=== PATIENT | female | born 1995 | race Caucasian/White ===

== ENCOUNTER 2022-01-08 09:04 | Emergency (ER) | payer BC, SELFPAY ==
[2022-01-08 09:28] VITALS: BP 117/80; PULSE 75; RESP 18; TEMP 37; O2SAT 98; BMI 34.1
[2022-01-08 09:40] LABS: Strep Scrn Group A (Rapid) Negative (Negative)
--- NOTE | 2022-01-08 09:48 | HMH.EDUTC ---
[facility] Disposition Clinical Impression: URI (upper respiratory infection) Qualifiers: URI type: unspecified URI Qualified Code(s): J06.9 - Acute upper respiratory infection, unspecified Disposition: Home, Self-Care Condition on Discharge: Good Instructions: Sore Throat Additional Instructions: *Monitor Temp, Over the counter Motrin or Tylenol as directed/as needed Tylenol every 4 hours and Motrin every 6 hours (as long as your family doctor has told you that you can take it) for fever or pain. and straight to ER if unable to lower temp less than 101.0 after medication given *Warm salt water gargles may help to soothe the throat *Throat Lozenges *Warm fluids like tea with honey may help to soothe the throat *Sleep elevated *Humidifier/Vaporizer Your throat swab was sent for culture. Those results are typically sent to your primary care. Be sure to follow up in 2-3 days with your family doctor/primary care physician if no improvement so they can review those result and treat if necessary. If you don?t have a primary care doctor, I recommend you get one but in the mean time, you will have to return to a walk in clinic Follow up IMMEDIATELY for new or worsening symptoms or no Noticeable improvement over the next 48-72 hours. 911 for difficulty breathing or swallowing Prescriptions: Azithromycin [Z-Hai 250mg Tab] 250 mg PO DIRECTED #6 tab Transmission Status: Pending to [id number] Referrals: Provider,Referral, [Primary Care Provider] - As needed Time of Disposition: 10:04 Medical Decision Making - Sagar Inquiry Pt receiving controlled substance: No Sagar was queried for this patient: No Vital Signs: 01/08/22 09:28 Temperature 98.6 F Temperature Source Oral Pulse Rate [Left] 75 Respiratory Rate 18 Blood Pressure [Right Arm] 117/80 Blood Pressure Mean [Right Arm] 92 02 Sat by Pulse Oximetry 98 - Lab Data Lab results reviewed: Yes: I reviewed the patient's lab results. Lab Results 01/08/22 09:28: Group A Strep Rapid Negative Orders (Tests/Meds): ORDERS Category Date Time Status Strep Screen Confirmation Stat Micro 01/08/22 09:[address] [facility] HPI - General Stated complaint: sore throat Time Seen by Provider: 01/08/22 09:48 Mode of Arrival: Ambulatory Source of Information: Patient Limitations: No Limitations Description of Symptoms (Recalled from Triage Doc. by RN): pt c/o congestion and a sore throat. pt states she has had 2 negative covid tests, however she was exposed about a wk ago. HEENT Symptoms (Recalled from RN notes): Yes Resp Symptoms (Recalled from RN notes): No Skin Symptoms (Recalled from RN notes): No MS Symptoms (Recalled from RN notes): No Functional Status (Recalled from RN notes): wnl - History of Present Illness Provider Complaint: Patient states that she has been having sinus congestion and sore throat States that last night she was looking at her throat and noticed a white patchy like area on the right lower part of her throat like she gets when she gets strep throat - Related Data Home Medications Medication Instructions Recorded Confirmed norgestimate 0.25 mg-ethinyl PO #84 tab 05/08/19 05/08/19 estradiol 35 mcg tablet Previous Rx's Medication Instructions Recorded cetirizine 5 mg-pseudoephedrine ER 1 tab PO Q12H PRN #30 tab 05/08/19 120 mg tablet,extended release,12hr fluticasone propionate 50 2 spray INTRANASAL DAILY #9.9 g 05/08/19 mcg/actuation nasal spray,suspension Azithromycin [Z-Hai 250mg Tab] 250 mg PO DIRECTED #6 tab 01/08/22 Allergies Allergy/AdvReac Type Severity Reaction Status Date / Time amoxicillin Allergy Verified 05/08/19 17:40 cephalexin Allergy Verified 05/08/19 17:40 - Worker's Comp Is this a Worker's Comp case?: No [facility] History - Hepatitis A Screen Attestation statement:: This patient has been screened for Hepatitis A risk factors. I have reviewed the patient'
[2022-01-08 10:09] VITALS: BP 117/80; PULSE 75; RESP 18; TEMP 37
[2022-01-08 10:16] LABS: Adenovirus,PCR Not Detected (NotDetected); Bordetella Pertussis Not Detected (NotDetected); Chlamydophila Pneumoniae, PCR Not Detected (NotDetected); Coronavirus 19, PCR Not Detected (NotDetected); Coronavirus 229E Not Detected (NotDetected); Coronavirus OC43 Not Detected (NotDetected); Coronovirus HKU1,PCR Not Detected (NotDetected); Human Metapneumovirus Not Detected (NotDetected); Influenza A, PCR Not Detected (NotDetected); Influenza AH1, 2009 Not Detected (NotDetected); Influenza AH1, PCR Not Detected (NotDetected); Influenza AH3,PCR Not Detected (NotDetected); Influenza B, PCR Not Detected (NotDetected); Mycoplasma Pneumoniae, PCR Not Detected (NotDetected); Parainfluenza 1, PCR Not Detected (NotDetected); Parainfluenza 2, PCR Not Detected (NotDetected); Parainfluenza 3, PCR Not Detected (NotDetected); Parainfluenza 4, PCR Not Detected (NotDetected); Respiratory Syncytial Virus Not Detected (NotDetected); Rhinovirus/Enterovirus Not Detected (NotDetected)
[2022-01-08 13:02] LABS: Coronavirus NL63 Detected (NotDetected)
== END 2022-01-08 10:14 | disposition home or self-care (01) ==
PROVIDERS: Emergency Provider Nurse Practitioner
DX: U07.1 COVID-19 (principal); J06.9 Acute upper respiratory infection, unspecified; Z79.51 Long term (current) use of inhaled steroids; Z88.0 Allergy status to penicillin; Z88.1 Allergy status to other antibiotic agents; Z88.3 Allergy status to other anti-infective agents; Z88.8 Allergy status to other drugs, medicaments and biological substances
CPT/HCPCS: 87430; 87581; 87632; 87798; 99213; C9803; G0463; U0003; U0005

== ENCOUNTER 2024-05-06 18:43 | Emergency (ER) | payer BC, SELFPAY ==
[2024-05-06 19:20] VITALS: BP 136/94; PULSE 74; RESP 20; TEMP 36.9; O2SAT 100; BMI 36.4
--- NOTE | 2024-05-06 19:43 | EXP.UTC ---
Discharge Plan Disposition Patient Disposition: Home, Self-Care Condition: Good Prescriptions Prescriptions: No Action sertraline 50 mg tablet 50 mg PO DAILY Patient Comments: TAKE 1 TABLET BY MOUTH ONCE DAILY Referrals Follow up/Referrals: Provider,Referral, [Primary Care Provider] - See instructions Activity Restrictions/Add. Instructions Additional Instructions/Restrictions: Follow-up with [facility] If worsens or no improvement return to be seen in the ER Monitor for fever For any issues return or be seen in the ER. Clinical Impressions Clinical Impression: Abdominal tenderness Instructions Patient Instructions: DI Umbilical Hernia-Child, Acute Abdominal Pain Print Language Print Language: French Discharge ED Provider: [place] ([facility] [place])Mary [facility] HPI General Stated complaint: Abd pain Mode of Arrival: Ambulatory Source of Information: Patient Limitations: No Limitations Time Seen by Provider: 05/06/24 19:30 Description of Symptoms (Recalled from Triage Doc. by RN): PATIENT C/O PAIN AND TENDERNESS TO RLQ THAT STARTED OVER THE LAST WEEK. SHE ALSO STATES SHE HAS A KNOT TO RIGHT SIDE OF UMBILICAL AREA. PATIENT REPORTS SHE HAD A 5 WEEKS AGO HEENT Symptoms (Recalled from RN notes): No Resp Symptoms (Recalled from RN notes): No Skin Symptoms (Recalled from RN notes): No MS Symptoms (Recalled from RN notes): No Functional Status (Recalled from RN notes): WNL History of Present Illness Provider Complaint: 29-year-old female presents for pain and tenderness in the right lower quadrant that started over a week ago. Patient states she is also has a golf ball size not area on the right side of her umbilicus. Patient states she had a 5 weeks ago and has had no complications denies fever denies redness denies tenderness of the C-sections scar. Patient states she called her SANDBLASTER STONE's office on Wednesday and they instructed her to take a laxative and drink more water. Per patient she was told she was constipated Related Data Home Medications ?Medication ?Instructions ?Recorded ?Confirmed sertraline 50 mg tablet 50 mg PO DAILY 05/06/24 05/06/24 Allergies Allergy/AdvReac Type Severity Reaction Status Date / Time amoxicillin Allergy Verified 05/08/19 17:40 cephalexin Allergy Verified 05/08/19 17:40 Worker's Comp Is this a Worker's Comp case?: No [facility] Disclaimer: The information contained in this section may have been updated after the patient was seen, as this information can be updated by other users. 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) Smoking Status: Never smoker alcohol intake: current alcohol intake frequency: holidays/special occasions only substance use type: denies use current occupational status: employed Travel in the last 8 weeks: Outside the [facility] household members: family housing: house ROS Obtained: Yes Systems reviewed as appropriate & no additional complaints except as documented Physical Exam General General appearance: alert and in no apparent distress Eye Eye exam: Present normal appearance ENT ENT exam: Present normal exam Respiratory Respiratory exam: Present normal lung sounds bilaterally Cardiovascular Cardiovascular exam: Present regular rate and normal rhythm Abdominal Exam Abdominal exam: Present soft, tenderness, normal bowel sounds and scar Comment: At right side of umbilicus golf ball size area palpated and tender. The rest of the abdomen is not tender. Neurological Exam Neurological exam: Present alert Medical Decision Making Medical Records Medical records reviewed: Yes I reviewed the patient's medical records. Sagar Inquiry Pt receiving controlled substance: No Sagar was queried for this patient: No Vital Signs: 05/06/24 19:20 Temperature 98.4 F Temperature Source Oral Pulse Rate [Left Brachial] 74 Respiratory Rate 20 Blood Pressure [Left Arm] 136/94 H Blood Pressure Mean [Left Arm] 108 Blood Pressure Source [Left Arm] Automatic Cuff Blood Pressure Position [Left Arm] Sitting 02 Sat by Pulse Oximetry 100 Oxygen Delivery Method Room Air Medical Decision Narrative: Discussed with patient the need to go to the ER for further evaluation at this time patient declines and states she will come back if needed if not we will follow-up as outpatient with her [facility] at [facility]
[2024-05-06 19:50] VITALS: BP 136/94; PULSE 74; RESP 20; TEMP 36.9; O2SAT 100
== END 2024-05-06 20:01 | disposition home or self-care (01) ==
PROVIDERS: Emergency Provider Nurse Practitioner Family
DX: R10.811 Right upper quadrant abdominal tenderness (principal)
CPT/HCPCS: 99212; 99213; G0463

== ENCOUNTER 2024-08-29 16:15 | Emergency (ER) | payer BC, SELFPAY ==
[2024-08-29 16:33] VITALS: BP 139/74; PULSE 81; RESP 18; TEMP 37.1; O2SAT 97; BMI 33.6
--- NOTE | 2024-08-29 16:37 | ED_ITS ---
Discharge Plan Disposition Patient Disposition: Home, Self-Care Condition: Good Prescriptions Prescriptions: New clindamycin HCl 300 mg capsule 300 mg PO Q8H Qty: 30 0RF No Action sertraline 50 mg tablet 50 mg PO DAILY Patient Comments: TAKE 1 TABLET BY MOUTH ONCE DAILY Referrals Follow up/Referrals: Pawan Gandara DO [Primary Care Provider] - See instructions Activity Restrictions/Add. Instructions Additional Instructions/Restrictions: Drink plenty of fluids. Take tylenol for pain or fever. Take the medications as directed. Follow up with your regular doctor. GO TO THE ER FOR ANY WORSENING SYMPTOMS Clinical Impressions Clinical Impression: Otitis media, Sinusitis Instructions Patient Instructions: Sinusitis, Middle Ear Infection, DI for Sinusitis, Clindamycin Print Language Print Language: Qatari Discharge ED Provider: Efrem Ibarra [facility] HPI General Stated complaint: cough bertin sore throat Mode of Arrival: Ambulatory Source of Information: Patient Time Seen by Provider: 08/29/24 16:30 Description of Symptoms (Recalled from Triage Doc. by RN): COUGH, CONGESTION, SORE THROAT, COVID/FLU NEGATIVE PATIENT IS HEENT Symptoms (Recalled from RN notes): Yes Resp Symptoms (Recalled from RN notes): Yes Skin Symptoms (Recalled from RN notes): No MS Symptoms (Recalled from RN notes): No Functional Status (Recalled from RN notes): WNL Related Data Home Medications ?Medication ?Instructions ?Recorded ?Confirmed sertraline 50 mg tablet 50 mg PO DAILY 05/06/24 08/29/24 Previous Rx's ?Medication ?Instructions ?Recorded clindamycin HCl 300 mg capsule 300 mg PO Q8H #30 caps 08/29/24 Allergies Allergy/AdvReac Type Severity Reaction Status Date / Time amoxicillin Allergy Verified 05/08/19 17:40 cephalexin Allergy Verified 05/08/19 17:40 Worker's Comp Is this a Worker's Comp case?: No [facility] Disclaimer: The information contained in this section may have been updated after the patient was seen, as this information can be updated by other users. 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: No Have you tested positive for COVID-19: No Exposed to someone with COVID-19 in past 14 days?: No Do you have a sore throat?: Yes Do you have a cough?: Yes Do you have any weakness?: No Do you have any diarrhea?: No Are you experiencing any unusual bleeding?: No Do you have any muscle aches/pain?: No Do you have any abdominal pain?: No Are you experiencing loss of taste or smell?: No ROS Obtained: Yes All systems reviewed & no additional complaints except as documented Constitutional Constitutional: Denies chills, Reports fever(s) and Reports poor appetite Eyes Eyes: Denies eye discharge ENT Ears, Nose, Mouth, and Throat: Denies ear discharge, Reports otalgia, Denies hearing loss, Denies sinus pain and Reports sore throat Cardiovascular Cardiovascular: Denies chest pain and Denies dyspnea Respiratory Respiratory: Denies chest congestion, Reports cough and Denies dyspnea Gastrointestinal Gastrointestingal: Denies abdominal pain, diarrhea, nausea or vomiting Musculoskeletal Musculoskeletal: Denies arthralgias Integumentary/Breasts Skin/Breast: Denies rash Physical Exam General General appearance: alert and in no apparent distress Head Head exam: atraumatic, normocephalic and normal inspection Eye Eye exam: Present normal appearance; Absent PERRL or EOMI ENT ENT exam: Present mucous membranes moist and normal external ear exam Expanded ENT Exam TM/Canal exam: Bilateral TM: erythema, bulging and effusion Nose exam: Absent sinus tenderness Nasal speculum exam: Bilateral: normal Mouth exam: Present normal external inspection and other; Absent drooling Teeth exam: Present normal inspection Throat exam: Present tonsillar erythema and tonsillomegaly Neck Neck exam: Present normal inspection, full ROM and trachea midline; Absent tenderness, meningismus or lymphadenopathy Chest Chest inspection: Present normal inspection and symmetric chest wall rise; Absent tenderness Respiratory Respiratory exam: Present normal lung sounds bilaterally; Absent respiratory distress, wheezes or stridor Cardiovascular Cardiovascular exam: Present regular rate, normal rhythm and normal heart sounds; Absent tachycardia or irregular rhythm Abdominal Exam Abdominal exam: Present soft and normal bowel sounds; Absent distention, tenderness, guarding, rebound or rigidity Extremities Exam Extremities exam: Present normal inspection and normal capillary refill; Absent tenderness, joint swelling or calf tenderness Back Exam Back exam: Present normal inspection and full ROM; Absent tenderness, CVA tenderness (R) or CVA tenderness (L) Neurological Exam Neurological exam: Present alert, oriented X3, CN II-XII intact, normal gait and reflexes normal; Absent motor sensory deficit Psychiatric Psychiatric exam: Present normal affect and normal mood Skin Skin exam: Present warm, dry, intact and normal color Lymphatic Lymphatic Findings: no adenopathy Medical Decision Making Medical Records Medical records reviewed: No I reviewed the patient's medical records. Screening: Per USPSTF and CDC recommendations, given the prevalence of disease in our region, it is our hospital?s policy to screen for HIV and viral Hepatitis for all patients aged 18 and over and those with ongoing risk factors. Sagar Inquiry Pt receiving controlled substance: No Vital Signs: 08/29/24 16:33 Temperature 98.7 F Temperature Source Oral Pulse Rate [Left Radial] 81 Respiratory Rate 18 Blood Pressure [Left Arm] 139/74 Blood Pressure Mean [Left Arm] 95 02 Sat by Pulse Oximetry 97 Lab Data Lab results reviewed: Yes I reviewed the patient's lab results.
[2024-08-29 17:12] VITALS: BP 139/84; PULSE 81; RESP 18; TEMP 37.1
== END 2024-08-29 17:12 | disposition home or self-care (01) ==
PROVIDERS: Emergency Provider Nurse Practitioner Family; PCP Student in an Organized Health Care Education/Training Program
DX: H66.90 Otitis media, unspecified, unspecified ear (principal); J01.90 Acute sinusitis, unspecified; R05.9 Cough, unspecified; R07.0 Pain in throat; R09.81 Nasal congestion; R50.9 Fever, unspecified; R63.8 Other symptoms and signs concerning food and fluid intake; H92.09 Otalgia, unspecified ear
CPT/HCPCS: 99212; G0381